=== PATIENT | female | born 1995 | race Asian ===

== ENCOUNTER → 2024-07-24 | Outpatient (CLI) | payer BC, SELFPAY ==
[2024-07-24 10:14] LABS: Collection Type, Urine Clean Catch
[2024-07-24 10:28] LABS: Basophils # (Auto) 0.1 Thou/mm3 (0.0-0.2); Basophils % (Auto) 1 % (0-2.5); Eosinophils # (Auto) 0.3 Thou/mm3 (0.0-0.5); Eosinophils % (Auto) 5 % (0-10); Hematocrit 42.3 % (36.0-46.0); Hemoglobin 14.4 g/dL (12.0-16.0); Immature Granulocytes % (Auto) 1 % (0-0); Immature Granulocytes Auto 0.03 Thou/mm3 (0.00-0.00); Lymphocytes % (Auto) 37 % (10-50); Mean Corpuscular Hemoglobin 30.4 pg (25.0-35.0); Mean Corpuscular Volume 89 fL (80-100); Monocytes # (Auto) 0.5 Thou/mm3 (0.0-0.8); Monocytes % (Auto) 8 % (0-12); Neutrophils # (Auto) 2.7 Thou/mm3 (1.8-7.7); Neutrophils % (Auto) 49 % (37-80); Nucleated Red Blood Cell % 0 /100 WBC (0); Platelet Count 277 Thou/mm3 (140-440); RDW Standard Deviation 38.2 fL (36.4-46.3); Red Blood Count 4.73 Miln/mm3 (4.00-5.20); White Blood Count 5.6 Thou/mm3 (3.6-11.0)
[2024-07-24 10:44] LABS: Glucose Estimated Average 100 mg/dL (80-131); Hemoglobin A1C 5.1 % Hgb (4.8-6.0)
[2024-07-24 10:44] LABS: Bilirubin,Urine Negative (Negative); Blood,Urine 2+ (Negative); Clarity,Urine Clear (Clear/Hazy); Color,Urine Yellow (Lt Yel-Yel); Culture Indicated,Urine Not Indicated; Glucose, Urine Negative (Negative); Ketones,Urine Negative (Negative); Leukocyte Esterase,Urine Negative (Negative); Nitrite,Urine Negative (Negative); Protein,Urine Trace (Neg - Trace); RBC,Urine 343 /hpf (0-3); Specific Gravity,Urine 1.029 (1.001-1.035); Squamous Epithelial Cell,Urine 2 /hpf (0-5); Urobilinogen,Urine Negative mg/dL (0.0-1.0); WBC,Urine 1 /hpf (0-5)
[2024-07-24 10:50] LABS: Iron 83 mcg/dL (50-170); Percent Iron Saturation 26 % (20-55); Total Iron Binding Capacity 317 mcg/dL (250-425); Unsaturated Iron Binding 234 (225-295)
[2024-07-24 11:02] LABS: Alanine Aminotransferase 10 U/L (10-49); Albumin, Serum 4.8 gm/dL (3.5-5.0); Albumin/Globulin Ratio 1.6 (1.2-2.2); Alkaline Phosphatase 65 U/L (46-116); Anion Gap 10 (7-16); Aspartate Amino Transferase 16 U/L (0-34); BUN/Creatinine Ratio 18 Ratio (12-20); Bilirubin,Total 0.5 mg/dL (0.3-1.2); Blood Urea Nitrogen 14 mg/dL (9-23); Calcium 9.6 mg/dL (8.3-10.6); Calcium (Corrected) 9.6 mg/dL (8.5-10.1); Carbon Dioxide 25.5 mMol/L (20.0-31.0); Chloride 108 mMol/L (98-107); Creatinine (Component) 0.8 mg/dL (0.6-1.3); Glucose 85 mg/dL (74-106); Osmolality,Calculated 284 (275-295); Potassium 4.6 mMol/L (3.4-5.1); Sodium 143 mMol/L (136-145); Total Protein 7.8 gm/dL (5.7-8.2); eGFR > 60 See Note
[2024-07-24 11:17] LABS: Cardiac Risk Estimate 3.5 RATIO (3.7-5.6); Cholesterol 168 mg/dL (132-200); HDL Cholesterol 48 mg/dL (40-60); LDL Cholesterol,Calculated 86 mg/dL (0-130); Triglycerides 170 mg/dL (30-150)
== END | disposition home or self-care (01) ==
PROVIDERS: PCP Family Medicine; Referring Provider Registered Nurse; Visit Provider Registered Nurse
DX: R79.89 Other specified abnormal findings of blood chemistry (principal)
CPT/HCPCS: 36415; 80053; 80061; 81001; 82306; 83036; 83540; 83550; 84443; 85025

== ENCOUNTER → 2024-08-21 | Outpatient (CLI) | payer BC, SELFPAY ==
[2024-08-21 08:18] LABS: Quantiferon-TB* See Sep Rpt
[2024-08-21 09:18] LABS: Hepatitis B Surface Ab Reactive (Immune) (Immune); Rubella, IgG Antibody Reactive (Immune)
[2024-08-26 06:51] LABS: Varicella-Zoster IgG Ab* 1.17 S/CO
== END | disposition home or self-care (01) ==
PROVIDERS: PCP Family Medicine; Referring Provider Registered Nurse; Visit Provider Registered Nurse
DX: Z11.1 Encounter for screening for respiratory tuberculosis (principal); Z28.39 Other underimmunization status
CPT/HCPCS: 36415; 86480; 86706; 86735; 86762; 86765; 86787